=== PATIENT | female | born 2000 | race Two or more races ===

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

== ENCOUNTER 2018-03-20 11:14 | Emergency (ER) | payer MEDICAID ==
[2018-03-20 12:19] LABS: BILIRUBIN,URINE NEGATIVE (NEGATIVE); GLUCOSE, URINE (UA) NEGATIVE (NEGATIVE); KETONES,URINE (UA) NEGATIVE (NEGATIVE); LEUKOCYTE ESTERASE, URINE NEGATIVE (NEGATIVE); NITRITE,URINE POSITIVE (NEGATIVE); OCCULT BLOOD,URINE SMALL (NEGATIVE); PH,URINE 5.5 PH (5.0-7.5); PROTEIN,URINE NEGATIVE (NEGATIVE); UROBILINOGEN,URINE 0.2 (NORMAL) E.U./dL (NORMAL)
[2018-03-20 12:20] LABS: CLARITY,URINE CLOUDY (CLEAR)
[2018-03-20 12:21] LABS: HCG UR QUAL NEGATIVE
[2018-03-20 12:35] LABS: BACTERIA,URINE Many /HPF (None Seen); RBC,URINE 0-5 /HPF (0-5); SQUAMOUS EPITHELIAL CELL,UR MANY Squamous (<= Few)
--- NOTE | 2018-03-20 12:43 | ED Physician Documentation ---
History of Present Illness - Stated complaint Stated Complaint: FEMALE - Chief complaint Chief Complaint: Abd Pain - Additonal information Additional information: hx from pt 17 y/o f dysuria for a week hx UTI no fever chills mild flank pain dolores no vag bleed or dc denies preg Review of Systems Constitutional: denies: Fever Cardiac: denies: Chest pain / pressure Respiratory: denies: Dyspnea GI: denies: Abdominal Pain : reports: Dysuria. denies: Now EGA Musculoskeletal: reports: Back pain PD PAST MEDICAL HISTORY - Past Surgical History Past Surgical History: No - Present Medications Home Medications: Ambulatory Orders Medication Instructions Recorded Confirmed Cephalexin [Keflex] 500 mg PO Q6H #28 capsule 03/20/18 Phenazopyridine [Pyridium] 100 mg PO Q8H PRN #9 tablet 03/20/18 - Allergies Allergies/Adverse Reactions: Allergies Allergy/AdvReac Type Severity Reaction Status Date / Time No Known Drug Allergies Allergy Verified 03/20/18 11:20 - Social History Does the pt smoke?: Yes Smoking Status: Current every day smoker Does the pt drink ETOH?: Yes Does the pt have substance abuse?: No - Immunizations Immunizations are current?: Yes - POLST Patient has POLST: No PD ED PE NORMAL - Vitals Vital signs reviewed: Yes - Cardiac Cardiac: RRR - Respiratory Respiratory: No respiratory distress - Abdomen Abdomen: Soft, Non tender - Back Back: No CVA TTP - Derm Derm: Normal color Results - Vitals Vitals: Vital Signs - 24 hr 03/20/18 11:18 Temperature 36.4 C L Heart Rate 84 Respiratory 16 Rate Blood Pressure 105/66 O2 Saturation 99 Oxygen O2 Source Room air - Labs Labs: Laboratory Tests 03/20/18 12:15 Urine Color YELLOW Urine Clarity CLOUDY Urine pH 5.5 Ur Specific [place] >=1.030 H Urine Protein NEGATIVE Urine Glucose (UA) NEGATIVE Urine Ketones NEGATIVE Urine Occult Blood SMALL H Urine Nitrite POSITIVE H Urine Bilirubin NEGATIVE Urine Urobilinogen 0.2 (NORMAL) Ur Leukocyte Esterase NEGATIVE Urine RBC 0-5 Urine WBC 6-10 H Ur Squamous Epith Cells MANY Squamous H Urine Bacteria Many H Ur Microscopic Review INDICATED Urine Culture Comments NOT INDICATED Urine HCG, Qual NEGATIVE Departure - Departure Disposition: 01 Home, Self Care Clinical Impression: UTI (urinary tract infection) Qualifiers: Urinary tract infection type: acute cystitis Hematuria presence: without hematuria Qualified Code(s): N30.00 - Acute cystitis without hematuria Condition: Good Instructions: ED UTI Cystitis Female Follow-Up: Marika Ron [employer] [Primary Care Provider] - (for a repeat urine to be sure infection has cleared after finishing antibiotics) Prescriptions: Cephalexin [Keflex] 500 mg PO Q6H #28 capsule Phenazopyridine [Pyridium] 100 mg PO Q8H PRN #9 tablet PRN Reason: painful urination
[2018-03-20 12:50] VITALS: BP 108/68
== END 2018-03-20 12:48 | disposition home or self-care (01) ==
LOC: ED 11:14
DX: N30.00 Acute cystitis without hematuria (principal); F17.200 Nicotine dependence, unspecified, uncomplicated
CPT/HCPCS: 81001; 81003; 81025; 87086; 99283

== ENCOUNTER 2019-01-14 22:09 | Emergency (ER) | payer MEDICAID ==
[2019-01-14 22:37] LABS: BILIRUBIN,URINE NEGATIVE (NEGATIVE); GLUCOSE, URINE (UA) NEGATIVE (NEGATIVE); KETONES,URINE (UA) NEGATIVE (NEGATIVE); LEUKOCYTE ESTERASE, URINE TRACE (NEGATIVE); NITRITE,URINE NEGATIVE (NEGATIVE); OCCULT BLOOD,URINE TRACE-LYSE (NEGATIVE); PROTEIN,URINE NEGATIVE (NEGATIVE); UROBILINOGEN,URINE 1 (NORMAL) E.U./dL (NORMAL)
[2019-01-14 22:40] LABS: CLARITY,URINE CLEAR (CLEAR); HCG UR QUAL NEGATIVE
[2019-01-14 22:46] LABS: BACTERIA,URINE Many /HPF (None Seen); MUCUS,URINE Few Strands; RBC,URINE 0-5 /HPF (0-5); SQUAMOUS EPITHELIAL CELL,UR MANY Squamous (<= Few); WBC CLUMPS,URINE NONE SEEN
--- NOTE | 2019-01-14 23:18 | ED Physician Documentation ---
PD HPI FEMALE - Stated complaint Stated Complaint: FEM - Chief complaint Chief Complaint: UTI - History obtained from History obtained from: Patient - Additional information Additional information: Patient is a 18-year-old female with questionable interstitial cystitis diagnosis who feels that she has chronic UTIs but presents tonight with worsening of her usual dysuria, as well as darkened urine. Patient denies new or worsening back pain, abdominal pain, nausea, vomiting, fever or other complaints. Patient is not on any Prophylactic antibiotics. No concerns for . No other improving or worsening factors noted. Review of Systems Constitutional: denies: Fever GI: denies: Abdominal Pain, Nausea, Vomiting, Diarrhea : reports: Hematuria Musculoskeletal: denies: Back pain PD PAST MEDICAL HISTORY - Past Medical History Past Medical History: No - Past Surgical History Past Surgical History: No - Allergies Allergies/Adverse Reactions: Allergies Allergy/AdvReac Type Severity Reaction Status Date / Time No Known Drug Allergies Allergy Verified 01/14/19 22:21 - Social History Does the pt smoke?: Yes Smoking Status: Current every day smoker Does the pt drink ETOH?: Yes Does the pt have substance abuse?: No - Immunizations Immunizations are current?: Yes - POLST Patient has POLST: No PD ED PE NORMAL - Vitals Vital signs reviewed: Yes - General General: Alert and oriented X 3, No acute distress, Well developed/nourished - HEENT HEENT: Atraumatic, Moist mucous membranes - Neck Neck: Supple, no meningeal sign - Cardiac Cardiac: RRR, No murmur - Respiratory Respiratory: No respiratory distress, Clear bilaterally - Abdomen Abdomen: Soft, Non tender, Non distended - Back Back: No CVA TTP - Derm Derm: Normal color, Warm and dry, No rash - Extremities Extremities: No deformity, No tenderness to palpate - Neuro Neuro: Alert and oriented X 3, No motor deficit, No sensory deficit - Psych Psych: Normal mood, Normal affect Results - Vitals Vitals: Vital Signs - 24 hr 01/14/19 22:16 Temperature 36.3 C L Heart Rate 97 Respiratory 16 Rate Blood Pressure 133/99 H O2 Saturation 100 Oxygen O2 Source Room air - Labs Labs: Laboratory Tests 01/14/19 22:31 Urine Color YELLOW Urine Clarity CLEAR Urine pH 7.0 Ur Specific [place] 1.020 Urine Protein NEGATIVE Urine Glucose (UA) NEGATIVE Urine Ketones NEGATIVE Urine Occult Blood TRACE-LYSE Urine Nitrite NEGATIVE Urine Bilirubin NEGATIVE Urine Urobilinogen 1 (NORMAL) Ur Leukocyte Esterase TRACE H Urine RBC 0-5 Urine WBC 6-10 H Urine WBC Clumps NONE SEEN Ur Squamous Epith Cells MANY Squamous H Urine Bacteria Many H Urine Mucus Few Strands Ur Microscopic Review INDICATED Urine Culture Comments NOT INDICATED Urine HCG, Qual NEGATIVE PD MEDICAL DECISION MAKING - ED course Complexity details: reviewed results, considered differential, d/w patient ED course: Patient presenting with concerns for UTI symptoms. Patient has questionable interstitial cystitis diagnosis. Urinary sample appears infected and testing negative. Have low suspicion for intra-abdominal pathology, pyelonephritis, nephrolithiasis, pelvic or ovarian issues, but considered. Discussed use of antibiotics, as well as other supportive cares, return precautions and follow-up. Patient received first dose of antibiotic in the ED tonight. Patient otherwise voiced understanding and is comfortable with discharge plan. Departure - Departure Disposition: 01 Home, Self Care Clinical Impression: Cystitis Condition: Good Instructions: ED UTI Cystitis Female Follow-Up: your,doctor [Other] - Within 3 Days Comments: Recommend hydration, healthy diet, and follow-up with your primary care physician in next 2 to 3 days. Please take antibiotic starting tomorrow as prescribed as you received your first dose tonight in the ER. Recommend taking antibiotics with small amount of food to avoid upset stomach. Return to ED sooner if experience worsening symptoms or have other concerns.
[2019-01-14] MEDS ORDERED: NITROFURANTOIN MACRO 100 MG CAPSULE PO STA (23:22)
[2019-01-14 23:44] VITALS: BP 110/58
== END 2019-01-14 23:44 | disposition home or self-care (01) ==
LOC: ED 22:09
DX: N30.90 Cystitis, unspecified without hematuria (principal); F17.200 Nicotine dependence, unspecified, uncomplicated
CPT/HCPCS: 81001; 81025; 99283; A9270; 81003; 87086

== ENCOUNTER 2019-06-16 13:53 | Emergency (ER) | payer MEDICAID ==
[2019-06-16 14:16] LABS: BILIRUBIN,URINE NEGATIVE (NEGATIVE); GLUCOSE, URINE (UA) NEGATIVE (NEGATIVE); KETONES,URINE (UA) NEGATIVE (NEGATIVE); LEUKOCYTE ESTERASE, URINE NEGATIVE (NEGATIVE); NITRITE,URINE NEGATIVE (NEGATIVE); OCCULT BLOOD,URINE SMALL (NEGATIVE); PROTEIN,URINE NEGATIVE (NEGATIVE); UROBILINOGEN,URINE 0.2 (NORMAL) E.U./dL (NORMAL)
[2019-06-16 14:18] LABS: CLARITY,URINE CLEAR (CLEAR); HCG UR QUAL NEGATIVE
--- NOTE | 2019-06-16 14:23 | ED Physician Documentation ---
PD HPI FEMALE - Stated complaint Stated Complaint: LORIE - Chief complaint Chief Complaint: Abd Pain - History obtained from History obtained from: Patient, Family - History of Present Illness Timing - onset: How many weeks ago (2) Timing - duration: Weeks (2) Timing - details: Gradual onset, Still present Associated symptoms: Back pain, Dysuria, Urinary frequency Contributing factors: No: Similar symptoms before: Diagnosis (uti) Recently seen: Not recently seen - Additional information Additional information: 18-year-old female who has had a history of frequent urinary tract infections over the past 3 years has had symptoms over the past 2 weeks and she has been hydrating attempting to control her symptoms and her symptoms have progressed and she now has some back pain as well as some slight nausea. She has not been into see the urologist and she has been on a number of different antibiotics the only one she remembers is Septra and Keflex. Review of Systems Constitutional: denies: Fever, Chills, Myalgias Eyes: denies: Decreased vision Ears: denies: Ear pain Nose: denies: Rhinorrhea / runny nose, Congestion Throat: denies: Sore throat Respiratory: denies: Cough GI: reports: Nausea. denies: Abdominal Pain, Vomiting : reports: Dysuria, Frequency Skin: denies: Rash, Lesions Musculoskeletal: reports: Back pain. denies: Neck pain Neurologic: denies: Generalized weakness, Focal weakness, Numbness PD PAST MEDICAL HISTORY - Past Surgical History Past Surgical History: No - Present Medications Home Medications: Ambulatory Orders Medication Instructions Recorded Confirmed Nitrofurantoin Monohyd/M-Cryst 100 mg PO BID 7 Days capsule 01/14/19 [Macrobid 100 mg Capsule] Nitrofurantoin Monohyd/M-Cryst 100 mg PO BID #10 capsule 06/16/19 [Macrobid 100 mg Capsule] - Allergies Allergies/Adverse Reactions: Allergies Allergy/AdvReac Type Severity Reaction Status Date / Time No Known Drug Allergies Allergy Verified 06/16/19 13:57 - Social History Does the pt smoke?: Yes Smoking Status: Current every day smoker Does the pt drink ETOH?: Yes Does the pt have substance abuse?: No - Immunizations Immunizations are current?: Yes - POLST Patient has POLST: No PD ED PE NORMAL - Vitals Vital signs reviewed: Yes (normal ) - General General: Alert and oriented X 3, No acute distress, Well developed/nourished - HEENT HEENT: Atraumatic, PERRL, EOMI - Neck Neck: Supple, no meningeal sign - Cardiac Cardiac: RRR, No murmur - Respiratory Respiratory: No respiratory distress, Clear bilaterally - Abdomen Abdomen: Normal bowel sounds, Soft, Non tender, Non distended, No organomegaly - Back Back: No CVA TTP, No spinal TTP - Derm Derm: Normal color, Warm and dry, No rash - Extremities Extremities: No deformity, No edema - Neuro Neuro: Alert and oriented X 3, 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, No motor deficit, No sensory deficit, Normal speech Eye Opening: Spontaneous Motor: Obeys Commands Verbal: Oriented GCS Score: 15 - Psych Psych: Normal mood, Normal affect Results - Vitals Vitals: Vital Signs - 24 hr 06/16/19 13:57 Temperature 36.8 C Heart Rate 85 Respiratory 14 Rate Blood Pressure 116/57 L O2 Saturation 100 Oxygen O2 Source Room air - Labs Labs: Laboratory Tests 06/16/19 14:00 Urine Color YELLOW Urine Clarity CLEAR Urine pH 6.0 Ur Specific [place] 1.025 Urine Protein NEGATIVE Urine Glucose (UA) NEGATIVE Urine Ketones NEGATIVE Urine Occult Blood SMALL H Urine Nitrite NEGATIVE Urine Bilirubin NEGATIVE Urine Urobilinogen 0.2 (NORMAL) Ur Leukocyte Esterase NEGATIVE Urine RBC 0-5 Urine WBC 0-3 Ur Squamous Epith Cells MANY Squamous H Urine Bacteria Rare Urine Mucus Few Strands Ur Microscopic Review INDICATED Urine Culture Comments NOT INDICATED Urine HCG, Qual NEGATIVE PD MEDICAL DECISION MAKING - ED course Complexity details: reviewed results, re-evaluated patient, considered differential, d/w patient, d/w family ED course: 18-year-old thin female with recurrent cystitis has no evidence of infection on evaluation of her urine under the microscope today. I suspect she may have interstitial cystitis and she indicates that previously antibiotics have helped even when her urine has not shown evidence of infection. My interpretation of this is more evidence of possible interstitial cystitis. We will prescribe her some Macrobid and I have referred her to the urologist up in [place]. Departure - Departure Disposition: 01 Home, Self Care Clinical Impression: Dysuria Condition: Stable Instructions: ED Dysuria Uncertain Cause Follow-Up: Gideon Isaac MD [Provider Admit Priv/Credential] - Prescriptions: Nitrofurantoin Monohyd/M-Cryst [Macrobid 100 mg Capsule] 100 mg PO BID #10 capsule Comments: Today your urine does not indicate evidence of infection. This will sometimes happen when a process called interstitial cystitis is present. This will require a follow-up with the urologist. In the meantime the antibiotic should actually help with your symptoms. Call Dr. Isaac's office this week for follow- up. [facility] is available [id number] and can help with your symptoms.
[2019-06-16 14:44] LABS: BACTERIA,URINE Rare /HPF (None Seen); MUCUS,URINE Few Strands; RBC,URINE 0-5 /HPF (0-5); SQUAMOUS EPITHELIAL CELL,UR MANY Squamous (<= Few)
[2019-06-16 15:08] VITALS: BP 119/72
== END 2019-06-16 15:08 | disposition home or self-care (01) ==
LOC: ED 13:53
DX: N30.10 Interstitial cystitis (chronic) without hematuria (principal); F17.200 Nicotine dependence, unspecified, uncomplicated
CPT/HCPCS: 81001; 81003; 81025; 87086; 99283; 99284

== ENCOUNTER 2020-07-10 08:00 | Outpatient (CLI) | payer MEDICAID ==
[2020-07-10 12:00] LABS: CHOL/HDL RATIO 2.4 (<4.4); CHOLESTEROL 183 mg/dL; HDL CHOLESTEROL 75 mg/dL; LDL CHOLESTEROL,CALCULATED 96 mg/dL; LDL/HDL RATIO 1.3 (<4.4); VLDL CHOLESTEROL 12 mg/dL
[2020-07-10 12:08] LABS: HCG,QUALITATIVE BLOOD NEGATIVE
[2020-07-11 10:52] LABS: HIV AG/AB 4TH GEN NON-REACTIVE (NON-REACTIVE)
[2020-07-11 14:12] LABS: HEPATITIS B SURFACE ANTIGEN NON-REACTIVE (NON-REACTIVE)
== END 2020-07-10 23:59 | disposition home or self-care (01) ==
LOC: LAB 08:00
PROVIDERS: ATTEND Obstetrics & Gynecology
DX: F33.9 Major depressive disorder, recurrent, unspecified (principal); Z13.220 Encounter for screening for lipoid disorders; N91.2 Amenorrhea, unspecified; Z11.3 Encounter for screening for infections with a predominantly sexual mode of transmission
CPT/HCPCS: 36415; 80061; 81599; 82306; 83721; 84443; 84703; 86592; 87340; 87389

== ENCOUNTER 2020-08-15 23:58 | Emergency (ER) | payer MEDICAID ==
--- NOTE | 2020-08-16 00:20 | ED Physician Documentation ---
PD HPI ALTERED MENTAL STATUS - Stated complaint Stated Complaint: ETOH - Chief complaint Chief Complaint: Neuro - History obtained from History obtained from: EMS - History of Present Illness Timing - onset: Today (tonight) Quality / character: Less responsive Associated symptoms: NVD (vomiting) Basline status: Alert and oriented X 3, Ambulatory, Independent - Additional information Additional information: brought to ED by a friend, HPI from friend who says they were at a [employer] tonight and patient had some shots of vodka, subsequently exhibited gradually decreasing level of responsiveness and then has had recurrent vomiting. no known drug ingestion, no known/ witnessed injury. Patient is not able to contribute to H+P due to AMS Review of Systems Unable to obtain: Intoxicated PD PAST MEDICAL HISTORY - Past Medical History Past Medical History: No - Past Surgical History Past Surgical History: No - Present Medications Home Medications: Ambulatory Orders Medication Instructions Recorded Confirmed Nitrofurantoin Monohyd/M-Cryst 100 mg PO BID 7 Days capsule 01/14/19 [Macrobid 100 mg Capsule] Nitrofurantoin Monohyd/M-Cryst 100 mg PO BID #10 capsule 06/16/19 [Macrobid 100 mg Capsule] - Allergies Allergies/Adverse Reactions: Allergies Allergy/AdvReac Type Severity Reaction Status Date / Time No Known Drug Allergies Allergy Verified 08/16/20 00:21 - Social History Does the pt smoke?: Yes Smoking Status: Current every day smoker Does the pt drink ETOH?: Yes Does the pt have substance abuse?: No - Immunizations Immunizations are current?: Yes - POLST Patient has POLST: No PD ED PE NORMAL - Vitals Vital signs reviewed: Yes - General General: Well developed/nourished - HEENT HEENT: Atraumatic, PERRL - Cardiac Cardiac: RRR, No murmur - Respiratory Respiratory: No respiratory distress, Clear bilaterally - Abdomen Abdomen: Soft, Non distended PD ED PE EXPANDED - General General: Lethargic, Other (responds to painful stimulus but not following commands, nonverbal) - GCS Eye Opening: To Pain Motor: Localizes to Pain Verbal: Incomprehensible Total: 9 Results - Vitals Vitals: Vital Signs - 24 hr 08/16/20 08/16/20 00:00 03:16 Temperature 35.9 C L Heart Rate 91 82 Respiratory 18 24 Rate Blood Pressure 106/62 95/65 O2 Saturation 98 100 Oxygen O2 Source Room air - Labs Labs: Laboratory Tests 08/16/20 08/16/20 08/16/20 00:14 00:15 00:15 WBC 14.8 H RBC 4.17 L Hgb 13.3 Hct 39.3 MCV 94.2 MCH 31.9 H MCHC 33.8 RDW 12.6 Plt Count 376 MPV 9.0 Neut # (Auto) Not Reportable Lymph # (Auto) Not Reportable Collier # (Auto) Not Reportable Eos # (Auto) Not Reportable Baso # (Auto) Not Reportable Absolute Nucleated RBC Not Reportable Total Counted 100 Band Neuts % (Manual) 1 Abnorm Lymph % (Manual) 0 Nucleated RBC % Not Reportable Neutrophils # (Manual) 8.3 H Lymphocytes # (Manual) 5.6 H Monocytes # (Manual) 0.7 Eosinophils # (Manual) 0.0 Basophils # (Manual) 0.1 Differential Comment MANUAL DIFFERENTIAL WBC Morphology NORMAL APPEARANCE Platelet Estimate NORMAL (130-450,000) Platelet Morphology NORMAL APPEARANCE RBC Morph Micro Appear NORMAL APPEARANCE Sodium 137 Potassium 2.6 L Chloride 105 Carbon Dioxide 16 L Anion Gap 16.0 H BUN 13 Creatinine 0.7 Estimated GFR (MDRD) 106 Glucose 228 H POC Whole Bld Glucose 192 H Calcium 9.2 Total Bilirubin 0.9 AST 18 ALT 17 Alkaline Phosphatase 50 Total Protein 7.8 Albumin 5.0 Globulin 2.8 Albumin/Globulin Ratio 1.8 Lipase 21 L Urine Color Urine Clarity Urine pH Ur Specific [place] Urine Protein Urine Glucose (UA) Urine Ketones Urine Occult Blood Urine Nitrite Urine Bilirubin Urine Urobilinogen Ur Leukocyte Esterase Urine RBC Urine WBC Ur Squamous Epith Cells Urine Bacteria Ur Microscopic Review Urine Culture Comments Urine HCG, Qual Urine Opiates Screen Ur Oxycodone Screen Urine Methadone Screen Ur Propoxyphene Screen Ur Barbiturates Screen Ur Tricyclics Screen Ur Phencyclidine Scrn Ur Amphetamine Screen U Methamphetamines Scrn U Benzodiazepines Scrn Urine Cocaine Screen U Cannabinoids Screen Ethyl Alcohol 162.6 08/16/20 08/16/20 00:20 00:20 WBC RBC Hgb Hct MCV MCH MCHC RDW Plt Count MPV Neut # (Auto) Lymph # (Auto) [place] # (Auto) Eos # (Auto) Baso # (Auto) Absolute Nucleated RBC Total Counted Band Neuts % (Manual) Abnorm Lymph % (Manual) Nucleated RBC % Neutrophils # (Manual) Lymphocytes # (Manual) Monocytes # (Manual) Eosinophils # (Manual) Basophils # (Manual) Differential Comment WBC Morphology Platelet Estimate Platelet Morphology RBC Morph Micro Appear Sodium Potassium Chloride Carbon Dioxide Anion Gap BUN Creatinine Estimated GFR (MDRD) Glucose POC Whole Bld Glucose Calcium Total Bilirubin AST ALT Alkaline Phosphatase Total Protein Albumin Globulin Albumin/Globulin Ratio Lipase Urine Color YELLOW Urine Clarity CLEAR Urine pH 5.5 Ur Specific [place] >=1.030 H Urine Protein NEGATIVE Urine Glucose (UA) NEGATIVE Urine Ketones NEGATIVE Urine Occult Blood SMALL H Urine Nitrite POSITIVE H Urine Bilirubin NEGATIVE Urine Urobilinogen 0.2 (NORMAL) Ur Leukocyte Esterase NEGATIVE Urine RBC 0-5 Urine WBC 0-3 Ur Squamous Epith Cells FEW Squamous Urine Bacteria Many H Ur Microscopic Review INDICATED Urine Culture Comments INDICATED Urine HCG, Qual NEGATIVE Urine Opiates Screen NEGATIVE Ur Oxycodone Screen NEGATIVE Urine Methadone Screen NEGATIVE Ur Propoxyphene Screen NEGATIVE Ur Barbiturates Screen NEGATIVE Ur Tricyclics Screen NEGATIVE Ur Phencyclidine Scrn NEGATIVE Ur Amphetamine Screen NEGATIVE U Methamphetamines Scrn NEGATIVE U Benzodiazepines Scrn NEGATIVE Urine Cocaine Screen NEGATIVE U Cannabinoids Screen NEGATIVE Ethyl Alcohol PD MEDICAL DECISION MAKING - ED course Complexity details: reviewed results, re-evaluated patient, considered differential, d/w patient ED course: patient arrives with vomiting and severely altered mental status, friend reports that patient had been drinking alcohol tonight. Her alcohol level is .162, urine drug screen negative. she gradually became increasingly awake and alert and p rior to discharge was AAOx3, says she rarely drinks and expresses appropriate regret regarding drinking to excess tonight. She is incidentally noted to have hypokalemia and given IV potassium in ED, instructed to follow up with her primary care provider to have this rechecked along with recheck of her mild hyperglycemia Departure - Departure Disposition: 01 Home, Self Care Clinical Impression: Hypokalemia, Hyperglycemia Alcohol intoxication Qualifiers: Complication of substance-induced condition: uncomplicated Qualified Code(s): F10.920 - Alcohol use, unspecified with intoxication, uncomplicated Condition: Good Instructions: ED Alcohol Intoxication Comments: Your potassium was low on tonight's testing; you were given a dose of potassium through the IV. You should have your potassium level rechecked within the next 1-2 weeks; this can be ordered by, and at the discretion of, your primary care provider. Your blood sugar was high on tonight's testing. This did not require specific treatment, but this also should be rechecked within the next 1-2 weeks. Discharge Date/Time: 08/16/20 04:30
[2020-08-16] MEDS ORDERED: SODIUM CHLORIDE 0.9% 1,000 ML IV STA (00:21)
[2020-08-16 00:28] LABS: MUDS CUTOFF CONCENTRATIONS CUTOFF CONC BELOW:
[2020-08-16 00:30] LABS: BASOPHILS % (AUTO) 1.2 %; EOSINOPHILS % (AUTO) 0.6 %; HCT - HEMATOCRIT 39.3 % (37.0-47.0); HGB - HEMOGLOBIN 13.3 g/dL (12.0-16.0); LYMPHOCYTES % (AUTO) 38.9 %; MEAN CORPUSCULAR HEMOGLOBIN 31.9 pg (27.0-31.0); MEAN CORPUSCULAR HGB CONC 33.8 g/dL (32.0-36.0); MEAN CORPUSCULAR VOLUME 94.2 fL (81.0-99.0); MONOCYTES % (AUTO) 5.9 %; NEUTROPHILS % (AUTO) 52.4 %; PLT - PLATELET COUNT 376 10^3/uL (130-450); RED BLOOD COUNT 4.17 10^6/uL (4.20-5.40); RED CELL DISTRIBUTION WIDTH 12.6 % (12.0-15.0); WHITE BLOOD COUNT 14.8 x10^3/uL (4.8-10.8)
[2020-08-16 00:33] LABS: ABNORMAL LYMPHS % (MANUAL) 0 %
[2020-08-16 00:36] LABS: BILIRUBIN,URINE NEGATIVE (NEGATIVE); GLUCOSE, URINE (UA) NEGATIVE (NEGATIVE); KETONES,URINE (UA) NEGATIVE (NEGATIVE); LEUKOCYTE ESTERASE, URINE NEGATIVE (NEGATIVE); NITRITE,URINE POSITIVE (NEGATIVE); OCCULT BLOOD,URINE SMALL (NEGATIVE); PH,URINE 5.5 PH (5.0-7.5); PROTEIN,URINE NEGATIVE (NEGATIVE); UROBILINOGEN,URINE 0.2 (NORMAL) E.U./dL (NORMAL)
[2020-08-16 00:38] LABS: CLARITY,URINE CLEAR (CLEAR)
[2020-08-16 00:39] LABS: HCG UR QUAL NEGATIVE
[2020-08-16 00:40] LABS: ALBUMIN/GLOBULIN RATIO 1.8 (1.0-2.2); BILIRUBIN,TOTAL 0.9 mg/dL (0.2-1.0); CALCIUM 9.2 mg/dL (8.5-10.3); CREATININE 0.7 mg/dL (0.4-1.0); ETOH - ETHANOL 162.6 mg/dL; POTASSIUM 2.6 mmol/L (3.5-5.0); TOTAL PROTEIN 7.8 g/dL (6.7-8.2)
[2020-08-16 00:43] LABS: BACTERIA,URINE Many /HPF (None Seen); RBC,URINE 0-5 /HPF (0-5); SQUAMOUS EPITHELIAL CELL,UR FEW Squamous (<= Few); WBC,URINE 0-3 /HPF (0-5)
[2020-08-16 00:47] LABS: AMPHETAMINE SCREEN,URINE NEGATIVE (NEGATIVE); BARBITURATE SCREEN,UR NEGATIVE (NEGATIVE); BENZODIAZEPINES SCREEN, URINE NEGATIVE (NEGATIVE); COCAINE SCREEN URINE NEGATIVE (NEGATIVE); METHADONE SCREEN, URINE NEGATIVE (NEGATIVE); METHAMPHETAMINES SCREEN, URINE NEGATIVE (NEGATIVE); OPIATE SCREEN, URINE NEGATIVE (NEGATIVE); OXYCODONE SCREEN, URINE NEGATIVE (NEGATIVE); PROPOXYPHENE SCREEN, URINE NEGATIVE (NEGATIVE); THC CANNABINOID SCREEN, URINE NEGATIVE (NEGATIVE); TRICYCLIC ANTIDEPRESSANT,URINE NEGATIVE (NEGATIVE)
[2020-08-16] MEDS ORDERED: ONDANSETRON 4 MG/2 ML VIAL IVP STA (00:50)
[2020-08-16 00:51] LABS: BAND NEUTROPHILS % (MANUAL) 1 %; BASOPHILS # (MANUAL) 0.1 10^3/uL (0-0.1); BASOPHILS % (MANUAL) 1 %; DIFFERENTIAL COMMENT MANUAL DIFFERENTIAL; LYMPHOCYTES # (MANUAL) 5.6 10^3/uL (1.5-3.5); LYMPHOCYTES % (MANUAL) 38 %; MONOCYTES # (MANUAL) 0.7 10^3/uL (0.0-1.0); NEUTROPHILS # (MANUAL) 8.3 10^3/uL (1.5-6.6); PLATELET ESTIMATE, MANUAL NORMAL (130-450,000) (NORMAL); PLATELET MORPHOLOGY NORMAL APPEARANCE (NORMAL); RBC MORPHOLOGY (MULTIPLE) NORMAL APPEARANCE (NORMAL); WBC MORPHOLOGY (MULTIPLE) NORMAL APPEARANCE (NORMAL)
[2020-08-16] MEDS ORDERED: POTASSIUM CHLOR 10 MEQ/100 ML 10 MEQ/100 ML BAG IV STA (01:10)
[2020-08-16 03:23] VITALS: BP 95/65
== END 2020-08-16 04:30 | disposition home or self-care (01) ==
LOC: ED 23:58
DX: F10.920 Alcohol use, unspecified with intoxication, uncomplicated (principal); Y90.6 Blood alcohol level of 120-199 mg/100 ml; E87.6 Hypokalemia; R73.9 Hyperglycemia, unspecified; F17.200 Nicotine dependence, unspecified, uncomplicated
CPT/HCPCS: 36415; 51702; 80053; 80306; 80320; 81001; 81003; 81025; 83690; 85025; 87077; 87086; 87181; 99281

== ENCOUNTER 2022-09-05 17:15 | Outpatient (CLI) | payer MEDICAID | END 2022-09-05 17:30 | disposition home or self-care (01) | LOC: LAB.N 17:15 | PROVIDERS: ATTEND Physician Assistant Medical | DX: N30.00 Acute cystitis without hematuria (principal) | CPT/HCPCS: 87086; 87181 ==

== ENCOUNTER 2022-09-08 13:51 | Emergency (ER) | payer MEDICAID ==
[2022-09-08 14:02] VITALS: BP 123/66
[2022-09-08 14:19] LABS: BILIRUBIN,URINE NEGATIVE (NEGATIVE); GLUCOSE, URINE (UA) NEGATIVE (NEGATIVE); KETONES,URINE (UA) NEGATIVE (NEGATIVE)
[2022-09-08 14:27] LABS: HCG UR QUAL NEGATIVE
[2022-09-08 14:28] LABS: CLARITY,URINE CLEAR (CLEAR)
[2022-09-08 14:35] LABS: BACTERIA,URINE Few /HPF (None Seen); RBC,URINE 0-5 /HPF (0-5); SQUAMOUS EPITHELIAL CELL,UR MOD Squamous (<= Few)
--- NOTE | 2022-09-08 15:45 | ED Physician Documentation ---
PD HPI BACK PAIN - Stated complaint Stated Complaint: PX,NAUSEA - Chief complaint Chief Complaint: Back Pain - History obtained from History obtained from: Patient - History of Present Illness Timing - onset: How many days ago (5) Timing - duration: Days (5) Timing - details: Gradual onset (she had dysuria c/w uTI and seen at [facility] clinic and rx bactrim for positive UA. She states some better but only moderately. Minimal vag discharge. No itching.) Location: Mid, Right (some pain in kidney area at times.) Associated symptoms: No: Fever, Weakness Worsened by: No: Movement, Lifting Contributing factors: No: Trauma Review of Systems Constitutional: denies: Fever, Chills : reports: Dysuria, Frequency, Discharge (mild without itching nor discomfort.). denies: Vaginal bleeding PD PAST MEDICAL HISTORY - Past Medical History Past Medical History: No - Past Surgical History Past Surgical History: No - Present Medications Home Medications: Ambulatory Orders Medication Instructions Recorded Confirmed Nitrofurantoin Monohyd/M-Cryst 100 mg PO BID 7 Days capsule 01/14/19 [Macrobid 100 mg Capsule] Nitrofurantoin Monohyd/M-Cryst 100 mg PO BID #10 capsule 06/16/19 [Macrobid 100 mg Capsule] HYDROcod/ACETAM 5/325 [[place] 5/325] 1 ea PO Q6H PRN #10 tablet 09/08/22 Ondansetron Odt [Zofran] 4 mg TL Q6H PRN #15 tablet 09/08/22 cephALEXin [Keflex] 500 mg PO TID #15 cap 09/08/22 - Allergies Allergies/Adverse Reactions: Allergies Allergy/AdvReac Type Severity Reaction Status Date / Time No Known Drug Allergies Allergy Verified 09/08/22 14:03 - Social History Does the pt smoke?: Yes Smoking Status: Current every day smoker Does the pt drink ETOH?: Yes Does the pt have substance abuse?: No - Immunizations Immunizations are current?: Yes - POLST Patient has POLST: No PD ED PE NORMAL - Vitals Vital signs reviewed: Yes - General General: Alert and oriented X 3, No acute distress, Well developed/nourished - Female Female : Deferred - Back Back: No CVA TTP - Derm Derm: Normal color, Warm and dry Results - Vitals Vitals: Vital Signs - 24 hr 09/08/22 13:57 Temperature 36.6 C Heart Rate 99 Respiratory 17 Rate Blood Pressure 123/66 O2 Saturation 99 Oxygen O2 Source Room air - Labs Labs: Laboratory Tests 09/08/22 09/08/22 14:00 14:00 Urine Color ORANGE Urine Clarity CLEAR Urine pH Ur Specific [place] Urine Protein Urine Glucose (UA) NEGATIVE Urine Ketones NEGATIVE Urine Occult Blood Urine Nitrite Urine Bilirubin NEGATIVE Urine Urobilinogen Ur Leukocyte Esterase Urine RBC 0-5 Urine WBC 6-10 H Ur Squamous Epith Cells MOD Squamous H Urine Bacteria Few Ur Microscopic Review INDICATED Urine Culture Comments NOT INDICATED Urine HCG, Qual NEGATIVE PD Medical Decision Making - ED course Complexity details: reviewed old records (prior culture result from 09/05/22 showed e.coli senstive to all. ), considered differential, d/w patient Reviewed Lab Results: urine culture from 09/05/22 was positive. I therefore do not think there needs to be eval for other dysuria causes, such as BV/etc. ED course: The patient states she is still has kidney area pain and some mild dysuria despite the 3-day course of Bactrim. She was treated for UTI and her urine culture result from September 05 showed E. coli that was sensitive to actually all antibiotics. Even though it should have been sensitive to sulfa, she still has residual symptoms. This may be just inflammatory but to reasonable to treat with a different antibiotic. The culture showed sensitivity to cephalosporins and so we will treat with Keflex as well as some Tylenol and add an some Zofran for nausea and pain medicine as needed. Departure - Departure Disposition: 01 Home, Self Care Clinical Impression: Flank pain UTI (urinary tract infection) Qualifiers: Urinary tract infection type: site unspecified Hematuria presence: without hematuria Qualified Code(s): N39.0 - Urinary tract infection, site not specified Condition: Stable Record reviewed to determine appropriate education?: Yes Follow-Up: Víctor Pryor ARNP [Primary Care Provider] - Prescriptions: cephALEXin [Keflex] 500 mg PO TID #15 cap HYDROcod/ACETAM 5/325 [[place] 5/325] 1 ea PO Q6H PRN #10 tablet PRN Reason: Pain Ondansetron Odt [Zofran] 4 mg TL Q6H PRN #15 tablet PRN Reason: Nausea / Vomiting Comments: Your urine culture from the third showed growth of a germ called E. coli which is a very common cause for bladder infections. It should have been sensitive to the sulfa antibiotic but since your symptoms have not cleared and obviously did not act completely sensitive to it. It does show other antibiotic choices that we can use that should be sensitive. We can use cephalexin 3 times daily for the next 5 days. To that use ondansetron if needed for nausea. Tylenol every 4-6 hours if needed for pains. I would avoid ibuprofen or such if your stomach is nauseous. Small frequent fluids. Add hydrocodone if needed for worse pains. I sent your prescriptions to [facility] pharmacy in [place]. Recheck if not improved well over the next several days with the new medication. I am prescribing a short course of narcotic pain medication for you. These are potentially dangerous and addictive medications that should be used carefully. These medications may constipate you. Take an [id number] stool softener such as docusate twice daily with plenty of water while taking these medications. If you go 24 hours without a bowel movement, take [id number] MiraLAX, per package instructions. Do not drink or drive while taking these medications. If you received narcotic or sedating medications while in the emergency department do not drive for 24 hours. Store this medication in a safe, secure place and out of reach of children. It is a violation of federal law to give or sell this medication to another person or to use in a manner other than prescribed. The ED will not refill narcotic prescriptions, including prescriptions lost or stolen. You can dispose of unwanted medications at the [facility]'s office or at several pharmacies such as [facility]. Discharge Date/Time: 09/08/22 16:17
[2022-09-08] MEDS ORDERED: cephALEXin 250 MG CAPSULE PO STA (16:00)
[2022-09-08] MEDS ORDERED: ACETAMINOPHEN 325 MG TABLET PO STA (16:00)
[2022-09-08] MEDS ORDERED: ONDANSETRON ODT 4 MG TABLET TL STA (16:00)
== END 2022-09-08 16:17 | disposition home or self-care (01) ==
LOC: ED 13:51
DX: N39.0 Urinary tract infection, site not specified (principal); F17.200 Nicotine dependence, unspecified, uncomplicated
CPT/HCPCS: 81001; 81025; 99283; A9270; Q0162; 81003; 87086

== ENCOUNTER 2023-01-31 15:15 | Outpatient (CLI) | payer MEDICAID, OTHER ==
[2023-01-31 17:58] LABS: BILIRUBIN,URINE NEGATIVE (NEGATIVE); GLUCOSE, URINE (UA) NEGATIVE (NEGATIVE); KETONES,URINE (UA) NEGATIVE (NEGATIVE); LEUKOCYTE ESTERASE, URINE SMALL (NEGATIVE); NITRITE,URINE POSITIVE (NEGATIVE); OCCULT BLOOD,URINE TRACE-INTA (NEGATIVE); PROTEIN,URINE NEGATIVE (NEGATIVE); UROBILINOGEN,URINE 0.2 (NORMAL) E.U./dL (NORMAL)
[2023-01-31 18:01] LABS: CLARITY,URINE HAZY (CLEAR)
[2023-01-31 18:33] LABS: BACTERIA,URINE Moderate /HPF (None Seen); CRYSTALS,URINE 11-25 Ca Oxalate /LPF; RBC,URINE 0-5 /HPF (0-5); SQUAMOUS EPITHELIAL CELL,UR FEW Squamous (<= Few); WBC,URINE >25 /HPF (0-5)
[2023-01-31 19:47] LABS: BACTERIAL VAGINOSIS DNA POSITIVE (NEGATIVE); CANDIDA GLABRATA DNA NEGATIVE (NEGATIVE); CANDIDA GROUP DNA NEGATIVE (NEGATIVE); CANDIDA KRUSEI DNA NEGATIVE (NEGATIVE); TRICHOMONAS VAGINALIS DNA NEGATIVE (NEGATIVE)
== END 2023-01-31 15:30 | disposition home or self-care (01) ==
LOC: LAB.N 15:15
PROVIDERS: ATTEND Emergency Medicine
DX: N76.0 Acute vaginitis (principal)
CPT/HCPCS: 81001; 81003; 81514; 87086; 87181

== ENCOUNTER 2023-02-03 05:27 | Emergency (ER) | payer OTHER ==
[2023-02-03 05:57] VITALS: BP 111/87; O2SAT 98
[2023-02-03 06:06] LABS: BILIRUBIN,URINE NEGATIVE (NEGATIVE); GLUCOSE, URINE (UA) NEGATIVE (NEGATIVE); KETONES,URINE (UA) NEGATIVE (NEGATIVE); LEUKOCYTE ESTERASE, URINE TRACE (NEGATIVE); NITRITE,URINE NEGATIVE (NEGATIVE); OCCULT BLOOD,URINE MODERATE (NEGATIVE); PROTEIN,URINE NEGATIVE (NEGATIVE); UROBILINOGEN,URINE 0.2 (NORMAL) E.U./dL (NORMAL)
[2023-02-03 06:09] LABS: CLARITY,URINE CLEAR (CLEAR); HCG UR QUAL NEGATIVE
--- NOTE | 2023-02-03 06:12 | ED Physician Documentation ---
History of Present Illness - Stated complaint Stated Complaint: FEMALE - Chief complaint Chief Complaint: Wound - History obtained from History obtained from: Patient - Additonal information Additional information: 22yF, previously healthy, p/w lesions to vulva area she noticed yesterday that are painful and oozing. also with flu-like symptoms/body aches and fatique for past week. First day of LMP 2 days ago (currently menstruating). Endorses some dysuria. Patient was just seen in urgent care and is on day 2 of clindamycin for BV. denies fever, abd pain, back pain. PD PAST MEDICAL HISTORY - Past Surgical History Past Surgical History: No - Present Medications Home Medications: Ambulatory Orders Medication Instructions Recorded Confirmed Etonogestrel [Nexplanon] 02/03/23 Valacyclovir HCl [Valtrex] 1,000 mg PO BID #14 tablet 02/03/23 clindamycin HCL [Clindamycin HCl] 300 mg PO TID 02/03/23 02/03/23 - Allergies Allergies/Adverse Reactions: Allergies Allergy/AdvReac Type Severity Reaction Status Date / Time No Known Drug Allergies Allergy Verified 02/03/23 05:48 - Social History Does the pt smoke?: Yes Smoking Status: Current every day smoker Does the pt drink ETOH?: Yes Does the pt have substance abuse?: No - Immunizations Immunizations are current?: Yes - POLST Patient has POLST: No PD ED PE NORMAL - Vitals Vital signs reviewed: Yes - General General: Alert and oriented X 3, No acute distress, Well developed/nourished - HEENT HEENT: Atraumatic, PERRL, EOMI - Neck Neck: Supple, no meningeal sign - Cardiac Cardiac: RRR - Respiratory Respiratory: No respiratory distress, Clear bilaterally - Abdomen Abdomen: Non tender, Non distended - Female 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 blood in vaginal vault. cervical os closed. no abnormal discharge. 1cm area of vesicular lesions clustered to the right of perineal crease) - Back Back: No CVA TTP - Derm Derm: Normal color, Warm and dry - Extremities Extremities: No deformity - Neuro Neuro: No motor deficit, No sensory deficit - Psych Psych: Normal mood, Normal affect Results - Vitals Vitals: Vital Signs - 24 hr 02/03/23 05:44 Temperature 36.7 C Heart Rate 79 Respiratory 18 Rate Blood Pressure 111/87 H O2 Saturation 98 Oxygen O2 Source Room air - Labs Labs: Laboratory Tests 02/03/23 02/03/23 06:01 06:01 Urine Color YELLOW Urine Clarity CLEAR Urine pH 6.0 Ur Specific [place] <=1.005 Urine Protein NEGATIVE Urine Glucose (UA) NEGATIVE Urine Ketones NEGATIVE Urine Occult Blood MODERATE H Urine Nitrite NEGATIVE Urine Bilirubin NEGATIVE Urine Urobilinogen 0.2 (NORMAL) Ur Leukocyte Esterase TRACE H Urine RBC 0-5 Urine WBC 4-5 Ur Squamous Epith Cells FEW Squamous Urine Bacteria Moderate H Urine Culture Comments INDICATED Urine HCG, Qual NEGATIVE PD Medical Decision Making - ED course ED course: 22yF p/w concern about lesions to vulva she noticed yesterday, with concern she may have genital herpes. also with flu like symptoms a week ago. pelvic exam c/w herpes infection. HIV testing provided and I counseled patient about the blind window and need for retesting in a month for HIV. GC/chlamydia, u/a, and hcg also ordered. pelvic exam otherwise benign. return precautions given. plan to f/u obstetrics teacher. Departure - Departure Disposition: 01 Home, Self Care Clinical Impression: Fatigue, Body aches, Vulval lesion, Herpes Condition: Stable Instructions: ED Screening Exam Medical Nonurgent Prescriptions: Valacyclovir HCl [Valtrex] 1,000 mg PO BID #14 tablet Comments: You were seen in the emergency department for lesions to your vulval area. Antiviral was sent to [facility]. Please follow-up with your obstetrics teacher and return to the emergency department if you have any new or worsening symptoms or other concerns. Forms: PCP List
[2023-02-03 06:16] LABS: BACTERIA,URINE Moderate /HPF (None Seen); RBC,URINE 0-5 /HPF (0-5); SQUAMOUS EPITHELIAL CELL,UR FEW Squamous (<= Few)
[2023-02-03 07:37] LABS: HIV RAPID SCREEN NEGATIVE (NEGATIVE)
[2023-02-03 09:30] LABS: CHLAMYDIA TRACHOMATIS DNA NEGATIVE (NEGATIVE); NEISSERIA GONORRHOEAE DNA NEGATIVE (NEGATIVE); TRICHOMONAS VAGINALIS DNA NEGATIVE (NEGATIVE)
[2023-02-04 04:08] LABS: HIV SCREEN 4TH GENERATION Non Reactive (Non Reactive)
== END 2023-02-03 06:55 | disposition home or self-care (01) ==
LOC: ED 05:27
DX: B00.9 Herpesviral infection, unspecified (principal); R53.83 Other fatigue; M79.10 Myalgia, unspecified site; N90.89 Other specified noninflammatory disorders of vulva and perineum; F17.200 Nicotine dependence, unspecified, uncomplicated
CPT/HCPCS: 36415; 81001; 81025; 86703; 87086; 87181; 87389; 87491; 87536; 87591; 87661; 99283

== ENCOUNTER 2023-02-14 14:20 | Outpatient (CLI) | payer OTHER | END 2023-02-14 14:21 | disposition home or self-care (01) | LOC: LAB 14:20 | PROVIDERS: ATTEND Nurse Practitioner | DX: A60.00 Herpesviral infection of urogenital system, unspecified (principal) | CPT/HCPCS: 36415; 86695; 86696 ==